=== PATIENT | male | born 1945 | race Caucasian/White ===

== ENCOUNTER → 2016-10-08 | Outpatient (CLI) | payer MEDICARE, BC ==
--- NOTE | 2016-10-08 20:03 | HKNOTE ---
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 Cal mas comes in requesting that I give him repeat cortisone injection into the hip. His last injection h elped him a great deal. He got the injection in April. He was free of pain until about 2 weeks ago. PHYSICAL EXAMINATION: He has marked painful limitation of motion of the right hip. MANAGEMENT: Under sterile conditions, given injection of 2 mL of Kenalog and 6 mL of 2% lidocaine i nto the right hip joint. He will be seen again as necessary. Dictated By: ANDREA MENSAH/MANN Conf#: [id number] DID#: [id number]
== END | disposition home or self-care (01) ==
LOC: HKI 14:32
DX: M16.11 Unilateral primary osteoarthritis, right hip (principal)
CPT/HCPCS: 20610; G0463; J3301

== ENCOUNTER 2018-03-18 05:37 | Inpatient (IN) | END 2018-03-19 14:30 | disposition home or self-care (01) | DRG 470 ==